=== PATIENT | male | born 1955 | race Caucasian/White ===

== ENCOUNTER 2016-08-05 01:10 | Emergency (ER) | payer SELFPAY ==
[~2016-08-05] VITALS: Ht 175.3 cm; Wt 90.7 kg
[2016-08-05] MEDS ORDERED: ACETAMINOPHEN 500 MG TABLET PO ONE (02:00)
[2016-08-05 03:39] VITALS: BP 127/73
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
--- NOTE | 2016-08-05 07:51 | RAD ---
EXAM: Right shoulder, 3 views. HISTORY: Pain. COMPARISON: None. FINDINGS: Internal and external rotation and transscapular views of the right shoulder are obtained. There is mild acromioclavicular spurring with capsular hypertrophy. There is no fracture, dislocation or subluxation. IMPRESSION: 1. Mild acromioclavicular osteoarthritis. 2. No acute osseous finding.
--- NOTE | 2016-08-05 08:16 | RAD ---
EXAM: Chest, single view. HISTORY: Pain. COMPARISON: None. FINDINGS: A frontal view of the chest is obtained. There is no infiltrate, effusion or pneumothorax. The heart is normal in size. There is a 1.7 cm round nodule within the medial right upper lobe, likely a calcified granuloma. IMPRESSION: 1. No acute pulmonary finding. 2. Suspected large right upper lobe granuloma.
== END 2016-08-05 04:25 | disposition home or self-care (01) ==
LOC: ER 01:10
DX: R07.89 Other chest pain (principal); M25.511 Pain in right shoulder; F10.120 Alcohol abuse with intoxication, uncomplicated; I10 Essential (primary) hypertension; F12.10 Cannabis abuse, uncomplicated; F14.10 Cocaine abuse, uncomplicated; Z91.041 Radiographic dye allergy status; Y08.89XA Assault by other specified means, initial encounter; Y93.89 Activity, other specified; Y92.89 Other specified places as the place of occurrence of the external cause; Y99.8 Other external cause status
CPT/HCPCS: 71010; 73030; 99284